=== PATIENT | male | born 1985 | race Caucasian/White ===

== ENCOUNTER 2016-12-27 21:02 | Emergency (ER) | payer OTHER ==
[~2016-12-27] VITALS: Ht 177.8 cm; Wt 84.1 kg
[2016-12-27] MEDS ORDERED: PROMETHAZINE 25 MG/ML VIAL IV ONE (21:33)
[2016-12-27] MEDS ORDERED: IV NORMAL SALINE 50ML 50 ML ONE (21:33)
[2016-12-27] MEDS: MORPHINE SULFATE 4 MG/ML DISP.SYRIN. IV ONE (21:45)
[2016-12-27] MEDS: PROMETHAZINE 12.5 MG in IV NORMAL SALINE 50ML 50 ML IV PRN (21:48)
--- NOTE | 2016-12-27 22:09 | RAD ---
EXAM: Abdomen and pelvis CT without intravenous contrast. HISTORY: Flank pain. Hematuria. TECHNIQUE: Computed tomographic images of the abdomen and pelvis were obtained without contrast. Multiplanar reformatting was performed. *One or more of the following individualized dose reduction techniques were utilized for this examination: 1. Automated exposure control. 2. Adjustment of the mA and/or kV according to patient size. 3. Use of iterative reconstruction technique. COMPARISON: None. FINDINGS: Evaluation of the lower thorax is unremarkable. No hepatic lesion is seen. The gallbladder, pancreas, spleen and adrenal glands are unremarkable. There is minimal to mild right hydronephrosis and hydroureter secondary to a 3 mm obstructing stone within the distal ureter slightly proximal to the ureterovesical junction. No additional renal or ureteral stone is seen. The bladder is unremarkable. No abnormally thickened or dilated bowel is seen. There is no pathologically enlarged lymph node. There is no suspicious osseous lesion. IMPRESSION: Minimal to mild right obstructive uropathy secondary to a 3 mm stone within the distal ureter slightly proximal to the ureterovesical junction. Electronically signed by: Lanny Cornelius MD (12/27/2016 10:05 PM)
[2016-12-27] MEDS: KETOROLAC 30 MG/ML VIAL. IV ONE (22:24)
--- NOTE | 2016-12-27 22:25 | ED.ADGEN ---
Past History Past Medical History: Other Past Surgical History: Other Alcohol Use: None Drug Use: None Adult General Chief Complaint Chief Complaint Right flank pain, hematuria HPI HPI Patient is a 31-year-old male with history of kidney stones who presents with acute onset right flank pain, with hematuria and nausea earlier today. Symptoms progressively wax and wane. No fevers chills, vomiting, sweats decreased urine output. No prior abdominal surgeries. Patient was able to spontaneously pass previous kidney stones. Review of Systems Review of Systems Review symptoms as per history of present illness. All other review symptoms reviewed. Current Medications Current Medications Current Medications Medications (Trade) Dose Ordered Sig/Mar[place]ella Start Time Stop Time Status Last Admin Dose Admin Ketorolac Tromethamine (Toradol) 30 mg 1X ONCE 12/27/16 22:15 12/27/16 22:16 UNV Morphine Sulfate (Morphine 4mg Syringe) 4 mg 1X ONCE 12/27/16 21:45 12/27/16 21:46 DC 12/27/16 21:45 4 MG Promethazine HCl (Phenergan) 25 mg STK-MED ONCE 12/27/16 21:33 12/27/16 21:34 DC Promethazine HCl 12.5 mg/Sodium Chloride 50.5 ml @ 101 mls/hr PRN Q6HRS PRN 12/27/16 21:30 12/27/16 21:48 101 MLS/HR Sodium Chloride 50 ml @ As Directed STK-MED ONCE 12/27/16 21:33 12/27/16 21:34 DC Allergies Allergies Allergies Coded Allergies Type Severity Reaction Last Updated Verified Penicillins Allergy Unknown 12/27/16 Yes Physical Exam Physical Exam Constitutional: Well developed, well nourished, moderate discomfort secondary to pain. HENT: Normocephalic, atraumatic, bilateral external ears normal, oropharynx moist, no oral exudates, nose normal. Eyes: PERRLA, EOMI, conjunctiva normal. Neck: Normal range of motion, no tenderness, supple. Cardiovascular:Heart rate regular rhythm, no murmur. Lungs & Thorax: Bilateral breath sounds clear to auscultation. Abdomen: Bowel sounds normal, soft, no tenderness. Skin: Warm, dry. Back: No tenderness, no CVA tenderness. Extremities: No tenderness, no cyanosis, no clubbing, ROM intact, no edema. Neurologic: Alert and oriented X 3, normal motor function, normal sensory function, no focal deficits noted. Psychologic: Affect, anxious. Current Patient Data Vital Signs Vital Signs Date Time Temp Pulse Resp B/P (MAP) Pulse Ox O2 Delivery O2 Flow Rate FiO2 12/27/16 21:45 20 98 Room Air 12/27/16 21:18 97.8 60 EKG EKG [] Radiology/Procedures Radiology/Procedures [CT abdomen pelvis: 3 mm distal right ureteral stone with mild hydroureter.] Course & Med Decision Making Course & Med Decision Making Pertinent Labs and Imaging studies reviewed. (See chart for details) [Symptom relief of symptoms with IV pain medication. No evidence of significant high grade ureteral obstruction. ] Final Impression Final Impression [1. R flank pain 2. Ureteral lithiasis] Problems: Dragon Disclaimer Dragon Disclaimer This electronic medical record was generated, in whole or in part, using a voice recognition dictation system. SELWYN BARBOSA DO Dec 27, 2016 22:25
[2016-12-27 22:38] LABS: CLARITY,URINE CLOUDY; COLOR,URINE RED
[2016-12-27 22:43] LABS: BILIRUBIN,URINE NEG (NEG); GLUCOSE,URINE NEG (NEG)
[2016-12-27 22:44] LABS: NITRITE,URINE NEG (NEG); UROBILINOGEN,URINE 0.2 mg/dL (0.2 mg/dL)
[2016-12-27 23:12] VITALS: BP 134/60
[2016-12-27] MEDS: START PACK - traMADol 1 STARTPACK TABLET PO ONE (23:20)
[2016-12-27] MEDS: PROMETHAZINE 25MG 4TABLET STARTPACK. PO ONE (23:20)
== END 2016-12-27 23:30 | disposition home or self-care (01) ==
LOC: ER 21:02
DX: N20.1 Calculus of ureter (principal); Z88.0 Allergy status to penicillin
CPT/HCPCS: 74176; 81003; 96365; 96375; 99285; J1885; J2270; J2550; 96361; 96374

== ENCOUNTER 2017-01-01 15:38 | Emergency (ER) | payer OTHER ==
[~2017-01-01] VITALS: Ht 177.8 cm; Wt 83.9 kg
[2017-01-01] MEDS ORDERED: IV NORMAL SALINE 1,000ML 1,000 ML IV SCH (15:50)
[2017-01-01] MEDS ORDERED: 0.9 % SODIUM CHLORIDE 10 ML DISP.SYRIN. IV PRN (16:00)
[2017-01-01] MEDS ORDERED: KETOROLAC 30 MG/ML VIAL. IV ONE (16:15)
[2017-01-01] MEDS ORDERED: ONDANSETRON PF 4 MG/2 ML VIAL. IV ONE (16:15)
[2017-01-01] MEDS: MORPHINE SULFATE 4 MG/ML DISP.SYRIN. IV/SQ PRN ×2 (16:22→17:16)
[2017-01-01 16:23] LABS: BACTERIA,URINE 0 /HPF (0-FEW); BILIRUBIN,URINE NEG (NEG); CLARITY,URINE HAZY; COLOR,URINE YELLOW; GLUCOSE,URINE NEG (NEG); NITRITE,URINE NEG (NEG); UROBILINOGEN,URINE 0.2 mg/dL (0.2 mg/dL); WBC,URINE OCC /HPF (0-4)
[2017-01-01 16:30] LABS: BASO % 0 % (0-3); EOS # 0.1 x10^3/uL (0.0-0.7); EOS % 1 % (0-3); HEMATOCRIT 41.2 % (39.0-53.0); HEMOGLOBIN 13.7 g/dL (13.0-17.5); LYMPH # 2.7 x10^3/uL (1.0-4.8); LYMPH % 25 % (24-48); MEAN CORPUSCULAR HEMOGLOBIN 27 pg (25-35); MEAN CORPUSCULAR HGB CONC 33 g/dL (31-37); MEAN CORPUSCULAR VOLUME 81 fL (79-100); MONO # 0.7 x10^3/uL (0.0-1.1); MONO % 6 % (0-9); NEUT # 7.3 x10^3uL (1.8-7.7); NEUT % 68 % (31-73); PLATELET COUNT 248 x10^3/uL (140-400); RED CELL DISTRIBUTION WIDTH 12.8 % (11.5-14.5); WHITE BLOOD COUNT 10.8 x10^3/uL (4.0-11.0)
[2017-01-01 16:37] LABS: CREATININE 1.1 mg/dL (0.7-1.3); GFR 77.6; POTASSIUM 3.9 mmol/L (3.5-5.1)
--- NOTE | 2017-01-01 16:37 | PHYS DOC ---
Past History Past Medical History: Other Past Surgical History: Other Alcohol Use: None Drug Use: None Adult General Chief Complaint Chief Complaint: FLANK PAIN HPI HPI This 31-year-old man presents with right flank pain. He states that he was here on December 27 and apparently had a 3 mm stone in the distal right ureter at that time. He was placed on Flomax and pain medications. I have to that visit on December 27 he did get some improvement was okay until yesterday when he restarted superior pain in his right flank. He has been able to pass his kidney stones in the past. His first episode of kidney stones about 5 years ago and he has had no recurrence until now. Review of Systems Review of Systems Constitutional: Denies fever or chills [] Eyes: Denies change in visual acuity, redness, or eye pain [] HENT: Denies nasal congestion or sore throat [] Respiratory: Denies cough or shortness of breath [] Cardiovascular: No additional information not addressed in HPI [] GI: Denies abdominal pain, nausea, vomiting, bloody stools or diarrhea [] : Denies dysuria See history of present illness Musculoskeletal: Denies back pain or joint pain [] Integument: Denies rash or skin lesions [] Neurologic: Denies headache, focal weakness or sensory changes [] Endocrine: Denies polyuria or polydipsia [] Current Medications Current Medications Current Medications Medications (Trade) Dose Ordered Sig/Mar[place]ella Start Time Stop Time Status Last Admin Dose Admin Ketorolac Tromethamine (Toradol) 30 mg 1X ONCE 01/01/17 16:15 01/01/17 16:16 DC 01/01/17 16:15 30 MG Morphine Sulfate (Morphine 4mg Syringe) 4 mg PRN Q15MIN PRN 01/01/17 16:00 01/02/17 15:59 01/01/17 16:22 4 MG Ondansetron HCl (Zofran) 4 mg 1X ONCE 01/01/17 16:15 01/01/17 16:16 DC 01/01/17 16:15 4 MG Sodium Chloride 1,000 ml @ 2,000 mls/hr 1X ONCE 01/01/17 16:45 01/01/17 17:14 Sodium Chloride (Normal Saline Flush) 10 ml QSHIFT PRN 01/01/17 16:00 Allergies Allergies Allergies Coded Allergies Type Severity Reaction Last Updated Verified Penicillins Allergy Unknown 12/27/16 Yes Physical Exam Physical Exam Constitutional: Well developed, well nourished, no acute distress, non-toxic appearance. [] HENT: Normocephalic, atraumatic, bilateral external ears normal, oropharynx moist, no oral exudates, nose normal. [] Eyes: PERRLA, EOMI, conjunctiva normal, no discharge. [] Neck: Normal range of motion, no tenderness, supple, no stridor. [] Cardiovascular:Heart rate regular rhythm, no murmur [] Lungs & Thorax: Bilateral breath sounds clear to auscultation [] Abdomen: Bowel sounds normal, soft, no tenderness, no masses, no pulsatile masses. Minimal abdominal tenderness on the right Skin: Warm, dry, no erythema, no rash. [] Back: No tenderness, no CVA tenderness. [] Extremities: No tenderness, no cyanosis, no clubbing, ROM intact, no edema. [] Neurologic: Alert and oriented X 3, normal motor function, normal sensory function, no focal deficits noted. [] Psychologic: Affect normal, judgement normal, mood normal. [] Current Patient Data Vital Signs Vital Signs Date Time Temp Pulse Resp B/P (MAP) Pulse Ox O2 Delivery O2 Flow Rate FiO2 01/01/17 16:22 19 98 Room Air Lab Results Laboratory Tests Test 01/01/17 15:45 01/01/17 16:07 Urine Collection Type Unknown Urine Color Yellow Urine Clarity Hazy Urine pH 8.0 Urine Specific [place] 1.015 Urine Protein Trace (NEG-TRACE) Urine Glucose (UA) Neg mg/dL (NEG) Urine Ketones (Stick) Neg mg/dL (NEG) Urine Blood Trace (NEG) Urine Nitrite Neg (NEG) Urine Bilirubin Neg (NEG) Urine Urobilinogen Dipstick 0.2 mg/dL (0.2 mg/dL) Urine Leukocyte Esterase Neg (NEG) Urine RBC 1-2 /HPF (0-2) Urine WBC Occ /HPF (0-4) Urine Squamous Epithelial Cells None /LPF Urine Bacteria 0 /HPF (0-FEW) White Blood Count 10.8 x10^3/uL (4.0-11.0) Red Blood Count 5.10 x10^6/uL (4.30-5.70) Hemoglobin 13.7 g/dL (13.0-17.5) Hematocrit 41.2 % (39.0-53.0) Mean Corpuscular Volume 81 fL (79-100) Mean Corpuscular Hemoglobin 27 pg (25-35) Mean Corpuscular Hemoglobin Concent 33 g/dL (31-37) Red Cell Distribution Width 12.8 % (11.5-14.5) Platelet Count 248 x10^3/uL (140-400) Neutrophils (%) (Auto) 68 % (31-73) Lymphocytes (%) (Auto) 25 % (24-48) Monocytes (%) (Auto) 6 % (0-9) Eosinophils (%) (Auto) 1 % (0-3) Basophils (%) (Auto) 0 % (0-3) Neutrophils # (Auto) 7.3 x10^3uL (1.8-7.7) Lymphocytes # (Auto) 2.7 x10^3/uL (1.0-4.8) Monocytes # (Auto) 0.7 x10^3/uL (0.0-1.1) Eosinophils # (Auto) 0.1 x10^3/uL (0.0-0.7) Basophils # (Auto) 0.0 x10^3/uL (0.0-0.2) EKG EKG [] Radiology/Procedures Radiology/Procedures [] Impressions: R Ureteral Colic Course & Med Decision Making Course & Med Decision Making This gentleman presented after having had a kidney stone found December 27. The stone was a 3 mm stone just proximal to the right UVJ. He presents because it is giving him pain again and he is does not have any more pain medications and is out of his Flomax His examination is essentially unremarkable however his CT shows that the stone is really not moving much. The patient was given prescription for more hydrocodone/APAP was also referred to urologist [] Dragon Disclaimer Dragon Disclaimer This chart was dictated in whole or in part using Voice Recognition software in a busy, high-work load, and often noisy Emergency Department environment. It may contain unintended and wholly unrecognized errors or omissions. Departure Departure: Referrals: NOEMI GEE (PCP) Scripts Tamsulosin Hcl (FLOMAX) 0.4 Mg Cap.er.24h 1 CAP PO DAILY, #7 CAP 11 Refills Prov: SANGITA RIBERA MD 01/01/17 Hydrocodone Bit/Acetaminophen (HYDROCODONE-APAP 5-325 ) 1 Each Tablet 1-2 TAB PO PRN Q6HRS Y for PAIN, #30 TAB 0 Refills Prov: SANGITA RIBERA MD 01/01/17 SANGITA RIBERA MD Jan 01, 2017 16:37
[2017-01-01] MEDS ORDERED: IV NORMAL SALINE 1,000ML 1,000 ML IV ONE (16:45)
--- NOTE | 2017-01-01 16:53 | RAD ---
CT study of the abdomen and pelvis without contrast History: Abdominal pain for 5 days. Intermittent hematuria. Nausea. Technique: Noncontrast helical CT scanning of the abdomen and pelvis was performed. Without contrast, sensitivity to detect organ pathology and GI tract pathology is decreased. PQRS Compliance Statement: One or more of the following individualized dose reduction techniques were utilized for this examination: 1. Automated exposure control 2. Adjustment of the mA and/or kV according to patient size 3. Use of iterative reconstruction technique Comparison: December 27, 2016. Findings: The liver and spleen and pancreas are normal on this noncontrast study. Gallbladder is normal and no extrahepatic biliary ductal dilatation is seen. No adrenal mass is evident. Again seen is mild right-sided hydronephrosis and hydroureter due to a distal right ureteral stone measuring 3 mm in size located 1 cm proximal to the UVJ. This has not changed position. The urinary bladder is not distended. No hydronephrosis or hydroureter is seen on the left side. No focal aneurysmal dilatation of the abdominal aorta is seen. Double IVC is seen which is a normal anatomical variant. No enlarged abdominal or pelvic lymphadenopathy is seen. No obstructive bowel pattern is seen. The appendix is normal. No free air or free fluid or mesenteric inflammatory change is seen. No lung base consolidation is evident. No osteolytic process is seen. IMPRESSION: Stable mild right-sided hydronephrosis and hydroureter due to a distal right ureteral stone measuring 3 mm in size located approximately 1 cm proximal to the UVJ.
[2017-01-01] MEDS ORDERED: HYDR-2758 PO (17:13)
[2017-01-01] MEDS ORDERED: TAMS0.4C97 PO (17:13)
[2017-01-01 17:20] VITALS: BP 144/66
== END 2017-01-01 17:33 | disposition home or self-care (01) ==
LOC: ER 15:38
DX: N23 Unspecified renal colic (principal); Z87.442 Personal history of urinary calculi; Z88.0 Allergy status to penicillin
CPT/HCPCS: 36415; 74176; 80048; 81001; 85027; 96361; 96374; 96375; 96376; 99285; J1885; J2270; J2405; J7030

== ENCOUNTER → 2017-10-09 | Outpatient (CLI) | payer OTHER ==
[~2017-10-09] MED LIST: HYDR-2758 PO; TAMS0.4C97 PO
== END | disposition home or self-care (01) ==
LOC: SURG 14:03
PROVIDERS: ATTEND Anesthesiology
DX: M54.12 Radiculopathy, cervical region (principal); Z87.442 Personal history of urinary calculi
CPT/HCPCS: 99204

== ENCOUNTER 2020-04-29 20:29 | Emergency (ER) | payer OTHER ==
[~2020-04-29] VITALS: Ht 177.8 cm; Wt 84.1 kg
[~2020-04-29 20:29] MED LIST changes: +HYDR-2155 PO; -HYDR-2758 PO
[2020-04-29] MEDS ORDERED: ASPIRIN CHEWABLE 81 MG TABLET. PO ONE (21:00)
--- NOTE | 2020-04-29 21:01 | PHYS DOC ---
Past History Past Medical History: GERD, Kidney Stones, Other Past Surgical History: Other Alcohol Use: None Drug Use: None General Adult EDM: Chief Complaint: CHEST PAIN HPI: HPI: 34-year-old male presents via EMS with chest pain. Patient states that the pain started suddenly while he was sitting on the couch about 2 and half hours ago. He describes it as a heaviness with shortness of breath but no diaphoresis.. It was moderate to severe in intensity for 30 or 45 minutes, then it tapered down but did not go away. After an unspecified amount of time, the pain increased again and the patient became more concerned. The pain is currently heaviness of moderate intensity. He has a family history of heart attacks under the age of 50. Patient admits that he also has anxiety at baseline. He is intermittently taking Wellbutrin lately. He also takes pantoprazole daily for acid reflux. He tells me that he has pretty significant GERD "all the time". He denies trauma or falls. He has not done any strenuous exercise. He denies fever or chills. Review of Systems: Review of Systems: Constitutional: Denies fever or chills Eyes: Denies change in visual acuity HENT: Denies nasal congestion or sore throat Respiratory: Denies cough or shortness of breath Cardiovascular: Chest pain GI: Denies abdominal pain, nausea, vomiting, bloody stools or diarrhea : Denies dysuria Musculoskeletal: Denies back pain or joint pain Integument: Denies rash Neurologic: Denies headache, focal weakness or sensory changes Endocrine: Denies polyuria or polydipsia Lymphatic: Denies swollen glands Psychiatric: Denies depression or anxiety Current Medications: Current Meds: Current Medications Medications (Trade) Dose Ordered Sig/[place] Start Time Stop Time Status Last Admin Dose Admin Aspirin (Aspirin Chewable) 324 mg 1X ONCE 04/29/20 21:00 04/29/20 20:49 DC Allergies: Allergies: Allergies Coded Allergies Type Severity Reaction Last Updated Verified Penicillins Allergy Intermediate 04/29/20 Yes Physical Exam: PE: Constitutional: Well developed, well nourished, no acute distress, non-toxic ap pearance. [] HENT: Normocephalic, atraumatic, bilateral external ears normal, oropharynx moist, no oral exudates, nose normal. [] Eyes: PERRLA, EOMI, conjunctiva normal, no discharge. [] Neck: Normal range of motion, no tenderness, supple, no stridor. [] Cardiovascular:Heart rate regular rhythm, no murmur [] Lungs & Thorax: Bilateral breath sounds clear to auscultation [] Abdomen: Bowel sounds normal, soft, no tenderness, no masses, no pulsatile masses. [] Skin: Warm, dry, no erythema, no rash. [] Back: No tenderness, no CVA tenderness. [] Extremities: No tenderness, no cyanosis, no clubbing, ROM intact, no edema. [] Neurologic: Alert and oriented X 3, normal motor function, normal sensory function, no focal deficits noted. [] Psychologic: Affect normal, judgement normal, mood normal. [] EKG: EKG: Sinus rhythm, rate 90, normal axis, no ST elevations or depressions. [] Radiology/Procedures: Radiology/Procedures: [] Heart Score: HEART Score for Chest Pain: HEART Score for Chest Pain Response (Comments) Value History Slighlty/Non-Suspicious 0 ECG Normal 0 Age < 45 0 Risk Factors 1 or 2 Risk Factors 1 Troponin < Normal Limit 0 Total 1 Risk Factors: Risk Factors: DM, Current or recent (<one month) smoker, HTN, HLP, family history of CAD, obesity. Risk Scores: Score 0 - 3: 2.5% MACE over next 6 weeks - Discharge Home Score 4 - 6: 20.3% MACE over next 6 weeks - Admit for Clinical Observation Score 7 - 10: 72.7% MACE over next 6 weeks - Early Invasive Strategies Course & Med Decision Making: Course & Med Decision Making Pertinent Labs and Imaging studies reviewed. (See chart for details) The patient has pretty significant acid reflux so I have given him 40 of Protonix and 20 of Pepcid IV. His EKG is unremarkable. His labs are unremarkable. His troponin is negative. His heart score is a 1. His chest x- ray is unremarkable. I gave the patient a little Ativan for his anxiety. He is feeling better. He is stable for discharge at this time. [] Khurramon Disclaimer: Geraldo Disclaimer: This electronic medical record was generated, in whole or in part, using a voice recognition dictation system. Departure Departure: Impression: Primary Impression: Chest pain Additional Impression: Anxiety about health Disposition: 01 DC HOME SELF CARE/HOMELESS Condition: STABLE Referrals: NOEMI GEE (PCP) Patient Instructions: Anxiety and Panic Attacks, [id number], Chest Pain (Nonspecific), [id number] SELWYN WILDE DO Apr 29, 2020 21:01
[2020-04-29 21:09] LABS: BASO % 1 % (0-3); EOS # 0.2 x10^3/uL (0.0-0.7); EOS % 2 % (0-3); HEMATOCRIT 38.5 % (39.0-53.0); HEMOGLOBIN 13.1 g/dL (13.0-17.5); LYMPH % 36 % (24-48); MEAN CORPUSCULAR HEMOGLOBIN 27 pg (25-35); MEAN CORPUSCULAR HGB CONC 34 g/dL (31-37); MEAN CORPUSCULAR VOLUME 80 fL (79-100); MONO # 0.6 x10^3/uL (0.0-1.1); MONO % 7 % (0-9); NEUT # 4.5 x10^3uL (1.8-7.7); NEUT % 54 % (31-73); PLATELET COUNT 254 x10^3/uL (140-400); RED BLOOD COUNT 4.82 x10^6/uL (4.30-5.70); RED CELL DISTRIBUTION WIDTH 12.5 % (11.5-14.5); WHITE BLOOD COUNT 8.3 x10^3/uL (4.0-11.0)
[2020-04-29 21:19] LABS: CALCIUM 9.2 mg/dL (8.5-10.1); CREATININE 1.2 mg/dL (0.7-1.3); GFR 68.9; POTASSIUM 3.3 mmol/L (3.5-5.1)
[2020-04-29 21:24] LABS: ALBUMIN 3.8 g/dL (3.4-5.0); ALBUMIN/GLOBULIN RATIO 1.2 (1.0-1.7); TOTAL BILIRUBIN 0.2 mg/dL (0.2-1.0); TOTAL PROTEIN 7.1 g/dL (6.4-8.2)
[2020-04-29] MEDS ORDERED: IV NORMAL SALINE 1,000ML 1,000 ML IV ONE (21:30)
[2020-04-29] MEDS ORDERED: FAMOTIDINE 20 MG/2 ML VIAL IVP ONE (21:30)
[2020-04-29] MEDS ORDERED: PANTOPRAZOLE IV 40 MG VIAL. IVP ONE (21:30)
--- NOTE | 2020-04-29 21:52 | EKG ---
[address] [address] Test Date: 2020-04-29 Test Time: 20:34:50 Pat Name: MICHAEL GARCÍA Department: Room: Gender: M Pediatric Nephrologist: : 1985 Requested By: SELWYN WILDE Order Number: [id number] Reading MD: Measurements Intervals [place] Rate: 90 P: 36 [place]: 138 QRS: 13 QRSD: 94 T: 7 QT: 340 QTc: 420 Interpretive Statements SINUS RHYTHM NORMAL ECG RI6.02 No previous ECG available for comparison
--- NOTE | 2020-04-29 22:36 | RAD ---
Exam: Chest one view INDICATION: Chest pain TECHNIQUE: Frontal view of the chest Comparisons: None FINDINGS: The cardiomediastinal silhouette and pulmonary vessels are within normal limits. The lung and pleural spaces are clear. IMPRESSION: No acute cardiopulmonary process. Electronically signed by: Mila Fernandez MD (04/29/2020 10:33 PM) JAC
[2020-04-29 22:54] LABS: BARBITURATES NEG (NEG); BENZODIAZEPINES NEG (NEG); CANNABINOIDS NEG (NEG); COCAINE NEG (NEG); METHADONE NEG (NEG); OPIATES NEG (NEG); PHENCYCLIDINE NEG (NEG)
[2020-04-29 22:55] LABS: BILIRUBIN,URINE NEG (NEG); CLARITY,URINE CLEAR; COLOR,URINE YELLOW; GLUCOSE,URINE NEG (NEG); UROBILINOGEN,URINE 0.2 mg/dL (0.2 mg/dL)
[2020-04-29 22:56] LABS: AMPHETAMINE/METHAMPHETAMINE NEG (NEG); NITRITE,URINE NEG (NEG)
[2020-04-29 23:00] LABS: AMORPHOUS SEDIMENT,UR PRESENT /HPF; BACTERIA,URINE 0 /HPF (0-FEW); RBC,URINE 0 /HPF (0-2); WBC,URINE 0 /HPF (0-4)
[2020-04-29 23:35] VITALS: BP 155/95
== END 2020-04-29 23:45 | disposition home or self-care (01) ==
LOC: ER 20:29
DX: R07.89 Other chest pain (principal); R06.02 Shortness of breath; F41.8 Other specified anxiety disorders; K21.9 Gastro-esophageal reflux disease without esophagitis; Z87.442 Personal history of urinary calculi; Z98.890 Other specified postprocedural states; Z88.0 Allergy status to penicillin
CPT/HCPCS: 36415; 71045; 80053; 80307; 81001; 84484; 85025; 93005; 96361; 96374; 96375; 99285; C9113; J2060; J3490; J7030